=== PATIENT | female | born 1955 | race Caucasian/White ===

== ENCOUNTER 2018-05-26 06:06 | Day surgery (SDC) | payer OTHER ==
[~2018-05-26] VITALS: Ht 165.1 cm; Wt 70.3 kg
[2018-05-26] MEDS ORDERED: TYL120S RC (07:28)
[2018-05-26] MEDS ORDERED: CALC500C17 PO (07:28)
[2018-05-26] MEDS ORDERED: CARV3.12 PO (07:28)
[2018-05-26] MEDS ORDERED: CYCL10TA13 PO (07:28)
[2018-05-26] MEDS ORDERED: LISI5TAB18 PO (07:28)
[2018-05-26] MEDS ORDERED: METF500T2 PO (07:28)
[2018-05-26] MEDS ORDERED: CAPE150T PO (07:28)
[2018-05-26] MEDS ORDERED: OMEP20TC12 PO (07:28)
[2018-05-26] MEDS ORDERED: KETOROLAC 30 MG/ML VIAL ONE (07:40)
[2018-05-26] MEDS ORDERED: LIDOCAINE 2% 100 MG/5 ML UJET TP ONE (07:40)
== END 2018-05-26 09:35 | disposition home or self-care (01) ==
LOC: MDS 06:06 → MMU 06:07 → MDS 09:35
PROVIDERS: ATTEND Internal Medicine Gastroenterology
DX: Z12.11 Encounter for screening for malignant neoplasm of colon (principal); D12.2 Benign neoplasm of ascending colon; K63.5 Polyp of colon; M19.90 Unspecified osteoarthritis, unspecified site; K76.89 Other specified diseases of liver; K76.0 Fatty (change of) liver, not elsewhere classified; K21.9 Gastro-esophageal reflux disease without esophagitis; E66.3 Overweight; Z80.0 Family history of malignant neoplasm of digestive organs; Z85.3 Personal history of malignant neoplasm of breast; Z90.10 Acquired absence of unspecified breast and nipple; Z79.84 Long term (current) use of oral hypoglycemic drugs; Z79.899 Other long term (current) drug therapy; Z68.25 Body mass index [BMI] 25.0-25.9, adult
CPT/HCPCS: 45385; 82948; J1885

== ENCOUNTER 2018-10-08 19:59 | Emergency (ER) | payer OTHER ==
[~2018-10-08] VITALS: Ht 167.6 cm; Wt 69.9 kg
[~2018-10-08 19:59] MED LIST: CALC500C17 PO; CAPE150T PO; CARV3.12 PO; CYCL10TA13 PO; LISI5TAB18 PO; METF500T2 PO; OMEP20TC12 PO; TYL120S RC
[2018-10-08 20:14] VITALS: BP 144/76
--- NOTE | 2018-10-08 20:20 | NUR ---
PT AMBULATED TO BED 2 WITH VSS.
--- NOTE | 2018-10-08 20:35 | NUR ---
PATIENT PRESENTS TO ED WITH N/V X8 HOURS. ABD IS FLAT, NON-TENDER, WITH HYPO-ACTIVE BOWEL SOUNDS X4 QUADRANTS. PT REPORTS LAST BM THIS AFTERNOON. PATIENT DENIES DIARRHEA OR FEVER. PT STATES SHE STARTED TO VOMIT AFTER BREAKFAST THIS MORNING, SHE ATE SOME HAM THAT SHE THINKS MIGHT HAVE BEEN SPOILED. PT REPORTS LIGHT RED VOMIT; PT DENIES ANY FEVER, CP, SOB, OR COUGH AT THIS TIME; PATIENT STATES PAIN OF 0/10 AT THIS TIME, AND 6/10 WHEN SHE VOMITS; VSS; PT HAS PORT IN L UPPER CHEST. PATIENT POSITIONED FOR COMFORT; HOB ELEVATED; BEDRAILS UP X2; BED DOWN. ER MD MADE AWARE OF PT STATUS. MED HX: BREAST CANCER, HTN, DM II RX:ACETAMINOPHEN, CALCIUM, CAPECITABINE, CARVIDOLOL, CYCLOBENZAPRINE, LISINOPRIL, METFORMIN, AND OMEPRAZOLE
[2018-10-08] MEDS ORDERED: NACL 0.9% 1,000 ML IV ONE (20:50)
[2018-10-08] MEDS ORDERED: ONDANSETRON 4 MG/2 ML VIAL IVP ONE (20:50)
[2018-10-08 22:30] VITALS: BP 113/63
== END 2018-10-08 22:30 | disposition home or self-care (01) ==
LOC: MED 19:59
DX: R10.13 Epigastric pain (principal); R11.2 Nausea with vomiting, unspecified; Z85.3 Personal history of malignant neoplasm of breast; E11.9 Type 2 diabetes mellitus without complications; Z79.84 Long term (current) use of oral hypoglycemic drugs; Z79.899 Other long term (current) drug therapy
CPT/HCPCS: 81002; 96361; 96374; 99283; J2405; J7030

== ENCOUNTER 2019-02-16 06:23 | Day surgery (SDC) | payer OTHER ==
[2019-02-16] MEDS ORDERED: fentaNYL 0.05 MG/ML VIAL ONE ×2 (08:25→09:56)
[2019-02-16] MEDS ORDERED: LIDOCAINE 2% 100 MG/5 ML UJET TP ONE ×2 (08:25→09:56)
[2019-02-16] MEDS ORDERED: MIDAZOLAM 2 MG/2 ML VIAL ONE ×2 (08:25→09:56)
[2019-02-16] MEDS ORDERED: fentaNYL 0.05 MG/ML VIAL IVP ONE (10:55)
== END 2019-02-16 10:50 | disposition home or self-care (01) ==
LOC: MDS 06:23 → MMU 06:23 → MDS 10:50
PROVIDERS: ATTEND Internal Medicine Gastroenterology
DX: K64.4 Residual hemorrhoidal skin tags (principal); I10 Essential (primary) hypertension; E11.9 Type 2 diabetes mellitus without complications; K21.9 Gastro-esophageal reflux disease without esophagitis; Z85.3 Personal history of malignant neoplasm of breast; Z98.890 Other specified postprocedural states; Z79.899 Other long term (current) drug therapy; Z79.84 Long term (current) use of oral hypoglycemic drugs
CPT/HCPCS: 45330; J3010; J2250